=== PATIENT | male | born 1970 | race Caucasian/White ===

== ENCOUNTER 2018-04-24 15:41 | Emergency (ER) | payer MEDICAID ==
[~2018-04-24] VITALS: Ht 175.3 cm; Wt 78.9 kg
[~2018-04-24 15:41] MED LIST: LANTUS SOLOS100 U/M1 SQ; METFORMIN HCL1000 MG PO; METFORMIN HCL850 MG PO; NOR10T PO
[2018-04-24 15:49] VITALS: Ht 175.3 cm; Wt 78.9 kg
[2018-04-24 17:21] VITALS: BP 117/73
== END 2018-04-24 17:27 | disposition home or self-care (01) ==
LOC: ED 15:41
DX: M79.674 Pain in right toe(s) (principal); E11.9 Type 2 diabetes mellitus without complications; Z90.49 Acquired absence of other specified parts of digestive tract; W45.8XXA Other foreign body or object entering through skin, initial encounter; Y93.89 Activity, other specified; Y92.89 Other specified places as the place of occurrence of the external cause; Y99.8 Other external cause status
CPT/HCPCS: 82962

== ENCOUNTER 2018-06-14 20:12 | Emergency (ER) | payer MEDICAID ==
[2018-06-14 21:15] VITALS: BP 149/83
== END 2018-06-14 21:55 | disposition home or self-care (01) ==
LOC: ED 20:12
DX: M54.42 Lumbago with sciatica, left side (principal); Z79.84 Long term (current) use of oral hypoglycemic drugs; Z90.49 Acquired absence of other specified parts of digestive tract
CPT/HCPCS: J1885